=== PATIENT | female | born 1995 | race African-American/Black ===

== ENCOUNTER 2017-11-13 08:28 | Emergency (ER) | payer BC, SELFPAY ==
[2017-11-13 08:28] VITALS: BP 121/77; PULSE 70; RESP 20; TEMP 36.6; O2SAT 100; BMI 25.4
[2017-11-13 08:32] VITALS: TEMP 36.6
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
[2017-11-13] MEDS: LORazepam 0.5 MG Tablet PO (08:41)
== END 2017-11-13 09:36 | disposition home or self-care (01) ==
LOC: ED 09:16
PROVIDERS: Emergency Provider Emergency Medicine; Family Provider Family Medicine; PCP Family Medicine
DX: S16.1XXA Strain of muscle, fascia and tendon at neck level, initial encounter (principal); F41.1 Generalized anxiety disorder; V48.0XXA Car driver injured in noncollision transport accident in nontraffic accident, initial encounter; Y93.I9 Activity, other involving external motion; Y92.410 Unspecified street and highway as the place of occurrence of the external cause; Y99.8 Other external cause status
CPT/HCPCS: 72040; 99284

== ENCOUNTER 2022-08-12 07:22 | Emergency (ER) | payer BC, SELFPAY ==
[2022-08-12 07:23] VITALS: BP 131/82; PULSE 77; RESP 16; TEMP 35.9; O2SAT 99; BMI 25.8
--- NOTE | 2022-08-12 08:23 | EDS_ITS ---
HPI HPI - GI History of Present Illness Chief Complaint: Abd Pain Narrative Narrative: 26-year-old female presenting with pain in the right flank and right lower quadrant which started about 4 AM. She states initially she was able to get back to sleep but woke up again at 6 AM with the pain. She feels nauseous but has not vomited. She states he has a history of ovarian cyst in the past which felt pretty close to this. She reports her last menstrual period was 2 weeks ago. She is not concerned for . She denies diarrhea, constipation, urinary complaints, vaginal complaints. She is not had a fever. [facility] Medical History Depression Ovarian cyst Home Medications citalopram 20 mg tablet 20 mg PO DAILY 08/12/22 [History Last Taken Unknown] montelukast 10 mg tablet 10 mg PO DAILY 08/12/22 [History Last Taken Unknown] Allergy/AdvReac Type Severity Reaction Status Date / Time No Known Allergies Allergy Verified 08/12/22 07:25 Social History Smoking Status: Never smoker ROS ROS ED Constitutional Constitutional ED: Denies chills or fever(s) ENT ENT ED: Denies rhinorrhea Cardiovascular Cardiovascular: Denies chest pain or palpitations Respiratory/Chest Respiratory/Chest: Denies cough or dyspnea Gastrointestinal Gastrointestinal: Reports abdominal pain and nausea Genitourinary Genitourinary ED: Denies dysuria or hematuria Musculoskeletal Musculoskeletal: Denies arthralgias or back pain Integumentary Denies abscess or Abrasions Neurologic Neurologic: Denies headache(s) or paresthesias Psychiatric Psychiatric: Denies anxiety or depression EXAM Physical Exam Const Vital Signs: 08/12/22 07:23 Temperature 96.7 F L Temperature Source Temporal Pulse Rate 77 Respiratory Rate 16 Blood Pressure 131/82 H Blood Pressure Mean 98 Pulse Ox 99 Oxygen Delivery Method Room Air Positive well nourished General Appearance ED: NAD; Negative for pallor HEENT Reports moist mucous membranes normocephalic and atraumatic Eyes PERRL and EOMs intact bilaterally Neck no lymphadenopathy Resp normal respiratory effort Cardio regular rate and regular rhythm GI Palpation: tender RLQ Back/Spine no CVA tenderness Neuro CN's II-XII intact bilaterally and moves all extremities Sensorium / Orientation: alert Motor Exam: strength 5/5 throughout Psych mental status grossly normal and thought process normal Skin no wounds General Skin Exam: Negative for jaundice or pallor MDM MDM MDM Narrative Medical decision making narrative: Patient with right sided abdominal pain which began abruptly about 4 AM. She was able to go to sleep and woke up again at 6 with pain. She states she has nausea with it. She does not have any diarrhea, constipation, urinary, vaginal complaints. She states this feels similar to her previous ovarian cyst that she had in the past but is not exactly the same. Patient states she has no concern for . She was medicated with Toradol and Zofran. Lab work will be obtained. CBC shows no leukocytosis with a white blood cell count of 6.8. Hemoglobin hematocrit are stable. Platelets are normal. Renal function electrolytes within normal limits. LFTs also normal. Urinalysis negative for infection. Urine hCG negative. Patient was given Toradol and Zofran and she feels improved. We discussed the likelihood that this is likely ovarian cyst. I did offer her ultrasound but she declines at this point she states that she will come back if the pain gets worse. I will prescribe her something for nausea for home. Impression: 1. Abdominal pain 2. History ovarian cyst 3. Nausea Lab Data Attestation: I reviewed the patient's lab results. Labs: Laboratory Results - last 24 hr 08/12/22 08/12/22 08/12/22 08:42 08:42 08:42 WBC 6.8 RBC 4.29 Hgb 12.2 Hct 35.9 L MCV 83.7 MCH 28.4 MCHC 34.0 RDW Std Deviation 43.2 RDW Coeff of [place] 14.0 Plt Count 320 MPV 11.3 Immature Gran % (Auto) 0.300 Neut % (Auto) 60.1 Lymph % (Auto) 26.0 [place] % (Auto) 10.9 H Eos % (Auto) 1.8 Baso % (Auto) 0.9 Absolute Neuts (auto) 4.1 Absolute Lymphs (auto) 1.76 Nucleated RBC % 0 Sodium 138 Potassium 4.1 Chloride 108 H Carbon Dioxide 25.0 Anion Gap 5 BUN 16 Creatinine 0.64 Estim Creat Clear Calc 129.54 Est GFR (MDRD) Af Amer 143 Est GFR (MDRD) Non-Af 118 BUN/Creatinine Ratio 25.0 H Glucose 90 Calcium 8.9 Total Bilirubin 0.30 AST 18 ALT 26 Alkaline Phosphatase 47 Total Protein 7.9 Albumin 3.7 Globulin 4.2 Albumin/Globulin Ratio 0.9 Urine Color Yellow Urine Clarity Cloudy Urine pH 8.0 Ur Specific [place] 1.010 Urine Protein Negative Urine Glucose (UA) Normal Urine Ketones Negative Urine Occult Blood Negative Urine Nitrite Negative Urine Bilirubin Negative Urine Urobilinogen Normal Ur Leukocyte Esterase Negative Urine RBC 0 SEEN Urine WBC 0 SEEN Ur Squamous Epith Cells 5-10 SEEN Amorphous Sediment 1+ Urine Bacteria RARE Urine Mucus 0 SEEN Urine Test Negative Discharge Plan Triage Chief Complaint: Abd Pain ED Provider: Nitin Ho Dx/Rx/DC Orders Prescriptions: No Action citalopram 20 mg tablet 20 mg PO DAILY montelukast 10 mg tablet 10 mg PO DAILY Primary Care Provider: Bekah Campbell NP Referrals: Bekah Campbell NP, [facility] [employer] [facility] [Primary Care Provider] -
[2022-08-12] MEDS: Ondansetron 4 MG/2 ML Vial IV (08:37)
[2022-08-12] MEDS: Ketorolac 15 MG/ML Vial IV (08:37)
[2022-08-12 08:47] LABS: Mucous, Urine 0 SEEN /hpf (<or=2+); Red Blood Cells-Urine 0 SEEN /hpf (0-5); White Blood Cells 0 SEEN /hpf (0-5)
[2022-08-12 08:52] LABS: Internal QC Validated? YES +Cl - CLEAR BKGD
[2022-08-12 08:53] LABS: Color, Urine Yellow (Yellow); Glucose, Dipstick Normal (Normal); Ketone-Dipstick Negative (Negative); Leukocyte Esterase-Dipstick Negative /ul (Negative); Nitrite-Dipstick Negative (Negative); Occult Blood-Urine Negative /ul (Negative); Pregnancy, Urine Negative Negative; Protein-Dipstick Negative (Negative); Urine Bilirubin Dipstick Negative (Negative); Urine Clarity Cloudy (Clear); Urine Urobilinogen Normal (Normal)
[2022-08-12 09:02] LABS: Absolute Lymphocyte Count 1.76 X10^3/uL (0.83-4.51); Absolute Neutrophil Count 4.1 X10^3/uL (2.0-7.7); Basophil# 0.06 X10^3/uL; Basophil% 0.9 % (0-1); Eosinophil# 0.12 X10^3/uL; Eosinophils% 1.8 % (0-5); Hematocrit 35.9 % (37-47); Hemoglobin 12.2 g/dL (12.0-15.0); Lymphocyte # 1.76 X10^3/ul (0.83-4.51); Mean Corpuscular Hgb 28.4 pg (27.0-32.0); Mean Corpuscular Volume 83.7 fL (81-99); Mean Platelet Vol. 11.3 fl (6.2-12.0); Monocyte# 0.74 X10^3/uL; Monocyte% 10.9 % (0-10); NRBC Flagged by Analyzer 0 % (0-5); Neutrophil # 4.08 X10^3/uL (2.7-7.7); Neutrophil % 60.1 % (47-70); Platelet Count 320 K/mm3 (150-450); RBC Distribution Width SD 43.2 fl (35.1-43.9); Red Blood Count 4.29 M/mm3 (4.2-5.4); White Blood Count 6.8 K/mm3 (4.4-11.0)
[2022-08-12 09:05] LABS: ALB/GLOB Ratio 0.9 RATIO (0.9-2.4); AST(SGOT) 18 U/L (15-37); Alanine Aminotransfer ALT/SGPT 26 U/L (13-56); Albumin, Serum 3.7 g/dL (3.2-5.0); Alkaline Phosphatase 47 U/L (45-117); Anion Gap 5 (5-15); BUN 16 mg/dL (7-18); Calcium,Total 8.9 mg/dL (8.5-10.1); Chloride 108 mmol/L (98-107); Creatinine, Serum 0.64 mg/dL (0.55-1.02); EST Glomerular Filtration Rate 118 mL/min (>60); Est Glom Filt Rate - Afr Amer 143 mL/min (>60); Estimated Creatinine Clearance 129.54 ml/min; Globulin 4.2 g/dL (2.2-4.2); Glucose 90 mg/dL (74-106); Potassium 4.1 mmol/L (3.5-5.1); Protein, Total 7.9 g/dL (6.4-8.2); Sodium Level 138 mmol/L (136-145)
[2022-08-12 09:06] LABS: Amorphous Sediment 1+; Bacteria RARE /hpf (None Seen); Squamous Epithelial Cells - UA 5-10 SEEN /hpf (5-10)
--- NOTE | 2022-08-12 09:37 | US_ITS ---
STUDY: ULTRASOUND OF THE FEMALE PELVIS - COMPLETE REASON FOR EXAM: Female, 26 years old. RIGHT PELVIC PAIN LMP: 07/29/2022. TECHNIQUE: Transvaginal TECHNICAL QUALITY: Adequate. COMPARISON: None. FINDINGS: The uterus is retroverted and is in a midline position. The uterus measures 6.1 cm x 4 cm x 3.7 cm. Normal uterine cervix. The endometrium measures 3.0 mm in thickness, and is hyperechoic. There is no demonstrated endometrial mass. There is no demonstrated myometrial mass. I.U.D. - The patient does not have an I.U.D. The right ovary is visualized. The right ovary measures 3.4 cm x 3.3 cm x 2.7 cm. There is no right ovarian cyst or ovarian mass. There is no visualized right adnexal mass or complex lesion. There is normal arterial and normal venous vascularity. The left ovary is visualized. The left ovary measures 3.3 cm x 2.5 cm x 1.5 cm. There is no left ovarian cyst or ovarian mass. There is no visualized left adnexal mass or complex lesion. There is normal arterial and normal venous vascularity. Minimal amount of free fluid is seen in the midline and left pelvis. US/Transvaginal Non- IMPRESSION: Minimal amount of free fluid is seen in the left hemipelvis. Electronically Signed: Rafa Sarha MD at 11:04 EDT ,
[2022-08-12 10:39] VITALS: RESP 16
--- NOTE | 2022-08-12 11:14 | CT_ITS ---
STUDY: CT ABDOMEN AND PELVIS WITH CONTRAST REASON FOR EXAM: Female, 26 years old. rlq abdominal pain RADIATION DOSAGE (If Supplied By Facility): CTDIvol = ( 13.80 ) mGy, DLP = ( 717.65 ) mGycm TECHNIQUE: Transaxial images were obtained from the dome of the diaphragm to the symphysis pubis without oral contrast. IV 100mL Isovue-300 was administered. Sagittal and coronal images were reconstructed. Individualized dose optimization techniques were used for this CT. COMPARISON: None. FINDINGS: The visualized lung bases are unremarkable. The visualized portions of the heart are within normal limits. Normal liver. Normal gallbladder and extrahepatic biliary system. Normal spleen. Normal pancreas. Normal bilateral adrenal glands. Normal right kidney. Normal left kidney. Normal visualized stomach. Normal small intestine. Normal colon. The appendix is visualized and appears normal. Normal abdominal aorta. Normal inferior vena cava. Normal retroperitoneum. Normal urinary bladder. Follicles are seen in the ovaries. Small amount of free fluid in the pelvis. The IUD is not seen within the uterus at this time. Normal abdominal wall. Normal osseous structures. CT/Abdomen/Pelvis W IV Cont ONLY IMPRESSION: Small amount of free fluid is seen in the pelvis. Follicles are seen in both ovaries. Electronically Signed: Rafa Sarah MD at 12:05 EDT ,
[2022-08-12] MEDS: Morphine 4 MG/ML Syringe IV (11:55)
[2022-08-12 13:30] VITALS: BP 125/73; PULSE 55; RESP 18; O2SAT 98
== END 2022-08-12 13:30 | disposition home or self-care (01) ==
PROVIDERS: Emergency Provider Student in an Organized Health Care Education/Training Program; PCP Nurse Practitioner Adult Health; Visit Provider Student in an Organized Health Care Education/Training Program
DX: R10.31 Right lower quadrant pain (principal); R11.0 Nausea; F32.A Depression, unspecified; Z79.899 Other long term (current) drug therapy
CPT/HCPCS: 74177; 76830; 80053; 81001; 81025; 85025; 96374; 96375; 99283; Q9967; A4216; J2405